=== PATIENT | female | born 1960 | race African-American/Black ===

== ENCOUNTER 2018-01-23 09:31 | Emergency (ER) | payer MEDICAID, OTHER ==
[~2018-01-23] VITALS: Ht 165.1 cm; Wt 64.0 kg
[~2018-01-23 09:31] MED LIST: LOSA25TA3
[2018-01-23 09:36] VITALS: BP 147/72
== END 2018-01-23 18:35 | disposition home or self-care (01) ==
LOC: ER 09:31
DX: S43.102A Unspecified dislocation of left acromioclavicular joint, initial encounter (principal); V49.49XA Driver injured in collision with other motor vehicles in traffic accident, initial encounter; Y93.89 Activity, other specified; Y92.410 Unspecified street and highway as the place of occurrence of the external cause; I10 Essential (primary) hypertension; E11.9 Type 2 diabetes mellitus without complications
CPT/HCPCS: 29125; 71045; 73030; 73130; 99284; A4565